=== PATIENT | female | born 2005 | race Caucasian/White ===

== ENCOUNTER 2025-08-01 19:14 | Emergency (ER) | payer BC, SELFPAY ==
--- NOTE | 2025-08-01 19:19 | ED_ITS ---
HPI - General Adult General Chief complaint: Dizziness Stated complaint: dizzy, fatigue, weakness Time Seen by Provider: 08/01/25 19:29 History of Present Illness ED Provider: Michael Carey MD HPI narrative: 19-year-old female with bipolar disorder on 3 psychiatric medications for this no other significant medical history with multitude of vague symptomatology described as paresthesias of the hands cold sensation of the hands vague cloudiness of the thought process. No drugs or alcohol this came on abruptly after removal of a nipple ring. No abdominal pain chest pain described denies palpitations no drug use or alcohol Related Data Allergies Allergy/AdvReac Type Severity Reaction Status Date / Time No Known Allergies Allergy Verified 08/01/25 19:21 [facility] Social History Social History Smoked in Last 30 Days: No Use of substances other than those prescribed or required for medical reasons: No Advance Directives: No Advance Directives Information Provided: No Physical Exam ED Exam Exam: GENERAL: Well appearing. No apparent distress. Alert. HEAD/NECK: Normal to inspection. Neck supple. No cervical lymphadenopathy. EYES: Normal to inspection. Sclera non-icteric. ENMT: External nose normal. RESPIRATORY: Respiratory effort normal. Lungs clear to auscultation bilaterally. CARDIOVASCULAR: Regular rate. Normal rhythm. No murmur. No rubs. GI: Soft, non-tender, non-distended. No rebound or guarding. No masses palpable. No hepatosplenomegaly. SKIN: No jaundice. NEUROLOGICAL: Alert. PSYCHIATRIC: Alert. Appearance appropriate for situation. Attitude cooperative. OTHER: Comprehensive Neuro exam: Face symmetric, tongue midline, strong symmetric eye closure, pupils symmetric and reactive to light, intact sensation to the face throughout, intact strong face deviation and shoulder shrug. Sensation intact to light touch throughout * 5 out of 5 strength in bilateral upper extremities, 5 and 5 strength in lower extremities Vital Signs: Vital Signs - 24 hr 08/01/25 19:20 08/01/25 19:46 08/01/25 19:48 Temperature 98.6 F Pulse Rate 85 84 106 H Respiratory Rate 18 Blood Pressure 143/63 H 147/73 H 154/80 H Pulse Oximetry 98 Oxygen Delivery Method Room Air 08/01/25 20:06 08/01/25 20:52 Temperature 98.3 F 98.3 F Pulse Rate 81 81 Respiratory Rate 20 20 Blood Pressure 142/75 H 142/75 H Pulse Oximetry 99 99 Oxygen Delivery Method Room Air Room Air BMI result Body Mass Index 38.9 Course Course Course Narrative: Rapid medical examination performed in triage by Shirley Hodge PA-C: Patient is a 19 year old assigned female at presenting to the emergency department with dizziness, brain fog, hand + feet paresthesias. Patient states that all of this happened after she took her nipple ring out. Detailed physical exam and review of systems are deferred to the manager business banking. Labs, EKG, and swabs ordered. Patient placed back in the waiting room pending room availability and results. Medications Administered Discontinued Medications Generic Name Dose Route Start Last Admin Trade Name Freq PRN Reason Stop Dose Admin Sodium Chloride 1,000 mls @ 999 mls/hr 08/01/25 19:45 08/01/25 20:52 Ns IV 08/01/25 20:45 Infused .Q1H1M [facility] Infusion Medical Decision Making Medical Decision Making MDM Narrative: Medical Decision Making: This 19-year-old female with bipolar with multitude of vague symptomatology as above. Perhaps mildly lightheaded fluid was started by nurse though the patient is not orthostatic we have discharged her prior to completion of this. She looks euvolemic has no concerning symptoms or objective neurologic findings. ECG performed to check QT and electrolyte this was reassuring. Preliminary Favored Differential Diagnosis: Electrolyte derangement, anxiety, orthostasis, dehydration, thyroid disorder among additional considered etiologies Testing Interpreted Independently: ?ECG: Rate 91, sinus rhythm, QTC 450, no ischemia no RV strain Radiology or Lab testing Results Reviewed: ?See below for details Consults: ?See below for details Independent Historians/External Chart Reviews: ?See below for details Social Determinants of Health Impacting MDM/Planning: ?See below for details Lab Data 08/01/25 19:42 08/01/25 19:42 Labs: Lab Results 08/01/25 08/01/25 Range/Units 19:42 20:24 WBC 8.8 (4.8-10.8) X10*3/uL RBC 5.22 (4.20-5.50) X10*6/uL Hgb 13.2 (12.0-16.0) g/dl Hct 41.0 (37.0-47.0) % MCV 78.5 L (80.0-98.0) fL MCH 25.3 L (27.0-33.0) pg MCHC 32.2 (31.0-35.0) g/dl RDW 16.5 H (11.0-16.0) % Plt Count 378 (160-400) X10*3/uL MPV 9.5 (9.4-12.3) fL Immature Gran % (Auto) 0.3 (0.0-0.4) % Neut % (Auto) 57.8 (45-73) % Lymph % (Auto) 30.3 (20-40) % Bates % (Auto) 8.4 (2-11) % Eos % (Auto) 2.4 (0-4) % Baso % (Auto) 0.8 (0-2) % Lymph # (Auto) 2.7 (1.2-4.9) X10*3/uL Bates # (Auto) 0.7 (0.1-1.2) X10*3/uL Eos # (Auto) 0.2 (0.0-0.4) X10*3/uL Baso # (Auto) 0.1 (0.0-0.2) X10*3/uL Abs Immat Gran (auto) 0.03 (0.00-0.03) X10*3/uL Absolute Neuts (auto) 5.1 (2.0-8.3) x10*3/uL Absolute Nucleated RBC 0.000 (0.0-0.012) X10*3/uL Nucleated RBC % (auto) 0.0 (0.0-0.2) /100WBC Sodium 141 (135-145) mmol/L Potassium 3.9 (3.3-5.1) mmol/L Chloride 110 H (96-108) mmol/L Carbon Dioxide 21 L (22-29) mmol/L Anion Gap 14 (12-20) BUN 17 H (9-16) mg/dL Creatinine 0.74 (0.5-1.4) mg/dL Estim Creat Clear Calc 158.4 Estimated GFR > 60 Random Glucose 96 (60-115) mg/dL Calcium 9.2 (8.4-10.2) mg/dL Magnesium 2.1 (1.6-2.6) mg/dL Total Bilirubin 0.1 (0.0-1.0) mg/dL AST 39 H (5-31) U/L ALT 74 H (0-31) U/L Alkaline Phosphatase 89 (39-117) U/L Troponin I High Sens < 2.7 (<3.5-17.0) ng/L Total Protein 7.9 (6.5-8.0) g/dL Albumin 4.8 (3.5-5.0) g/dL Beta HCG, Quant < 2 mIU/mL Urine Color Yellow Urine Appearance Clear Urine pH 7.5 (5.0-9.0) Ur Specific Leonard 1.010 (1.005-1.025) Urine Protein Negative (Neg-Trace) mg/dL Urine Glucose (UA) Negative (Negative) mg/dL Urine Ketones Negative (Negative) mg/dL Urine Blood Negative (Negative) Urine Nitrite Negative (Negative) Ur Leukocyte Esterase Negative (Negative) Influenza Type A (PCR) NEGATIVE (Negative) Influenza Type B (PCR) NEGATIVE (Negative) RSV RNA Qual (PCR) NEGATIVE (Negative) SARS-CoV-2 RNA (RT-PCR) NEGATIVE (Negative) Discharge Plan Discharge Clinical Impression: Paresthesia Patient Disposition: Home, Self-Care Instructions: Paresthesia (ED) Interventions: ED Discharge Assessment Last Done: 08/01/25 20:52 Discharge Date/Time: 08/01/25 21:09 Print Language: Setswana
[2025-08-01 19:20] VITALS: BP 143/63; PULSE 85; RESP 18; TEMP 37; O2SAT 98; BMI 38.9
--- NOTE | 2025-08-01 19:20 | ECG_ITS ---
Test Reason : dizziness Blood Pressure : */* mmHG Vent. Rate : 91 BPM Atrial Rate : 91 BPM P-R Int : 146 ms QRS Dur : 88 ms QT Int : 366 ms P-R-T Axes : 52 56 56 degrees QTcB Int : 450 ms Normal sinus rhythm Normal ECG No previous ECGs available Referred By: Shirley Hodge Electronically Signed By: MEREDITH WILCOX
[2025-08-01 19:46] VITALS: BP 147/73; PULSE 84
[2025-08-01 19:48] VITALS: BP 154/80; PULSE 106
[2025-08-01 19:55] LABS: MANUAL DIFF FLAG NO
--- NOTE | 2025-08-01 19:55 | PC.NURSE ---
As well as previous c/o's, pt here today w/ c/o burning w/ urination assoc w/ mild nausea x today.
[2025-08-01 19:59] LABS: Hematocrit 41.0 % (37.0-47.0); Hemoglobin 13.2 g/dl (12.0-16.0); Imm Gran Abs Auto 0.03 X10*3/uL (0.00-0.03); Imm Gran Pct Auto 0.3 % (0.0-0.4); Lymphocytes Absolute Auto 2.7 X10*3/uL (1.2-4.9); Mean Corpuscular HGB Conc 32.2 g/dl (31.0-35.0); Mean Corpuscular Hemoglobin 25.3 pg (27.0-33.0); Mean Corpuscular Volume 78.5 fL (80.0-98.0); NRBC Abs Auto 0.000 X10*3/uL (0.0-0.012); NRBC Pct Auto 0.0 /100WBC (0.0-0.2); Platelet Count 378 X10*3/uL (160-400); Red Blood Count 5.22 X10*6/uL (4.20-5.50); White Blood Count 8.8 X10*3/uL (4.8-10.8)
[2025-08-01 20:06] VITALS: BP 142/75; PULSE 81; RESP 20; TEMP 36.8; O2SAT 99
[2025-08-01 20:19] LABS: Alanine Aminotransferase 74 U/L (0-31); Albumin Level 4.8 g/dL (3.5-5.0); Alkaline Phosphatase 89 U/L (39-117); Anion Gap 14 (12-20); Aspartate Amino Transferase 39 U/L (5-31); Blood Urea Nitrogen 17 mg/dL (9-16); Calcium 9.2 mg/dL (8.4-10.2); Carbon Dioxide 21 mmol/L (22-29); Chloride 110 mmol/L (96-108); Creatinine Clr Calc Pharmacy 158.4; Estimated Glomerular Filt Rate > 60; Magnesium 2.1 mg/dL (1.6-2.6); Potassium 3.9 mmol/L (3.3-5.1); Sodium 141 mmol/L (135-145); Total Protein 7.9 g/dL (6.5-8.0)
[2025-08-01 20:24] LABS: Troponin-I High Sensitivity < 2.7 ng/L (<3.5-17.0)
[2025-08-01 20:30] LABS: Appearance Urine Clear; Glucose Urine UA Negative (Negative); PH 7.5 (5.0-9.0); Specific Gravity - Urine 1.010 (1.005-1.025)
[2025-08-01 20:34] LABS: Resp Syncy Virus RNA Qual PCR NEGATIVE (Negative); SARS COV2 PCR INHOUSE NEGATIVE (Negative)
[2025-08-01 20:52] VITALS: BP 142/75; PULSE 81; RESP 20; TEMP 36.8; O2SAT 99
== END 2025-08-01 21:09 | disposition home or self-care (01) ==
PROVIDERS: Physician Assistant Medical; Emergency Provider Emergency Medicine
DX: R20.2 Paresthesia of skin (principal); R42 Dizziness and giddiness; R10.22 Pelvic and perineal pain left side; Z03.818 Encounter for observation for suspected exposure to other biological agents ruled out; Z79.899 Other long term (current) drug therapy
CPT/HCPCS: 80053; 81003; 83735; 84484; 84702; 85025; 87637; 93005; 99284; 99285

== ENCOUNTER → 2025-08-01 19:20 | Outpatient (BNV) | payer BC, SELFPAY | PROVIDERS: Emergency Provider Emergency Medicine; Visit Provider Internal Medicine | DX: R42 Dizziness and giddiness (principal) | CPT/HCPCS: 93010 ==